=== PATIENT | male | born 1940 | race Caucasian/White ===

== ENCOUNTER 2020-05-26 15:15 | Outpatient (REF) | payer MEDICARE, SELFPAY ==
[2020-05-26 17:45] LABS: Erythrocyte Sedimentation Rate 6 MM/HR (0-15)
== END 2020-05-26 15:16 | disposition home or self-care (01) ==
LOC: HO.LAB 15:15
PROVIDERS: PCP Internal Medicine Endocrinology, Diabetes & Metabolism; Visit Provider Psychiatry & Neurology Neurology
DX: R55 Syncope and collapse (principal)
CPT/HCPCS: 36415; 85652